=== PATIENT | male | born 1940 | race African-American/Black ===

== ENCOUNTER 2018-05-21 19:49 | Emergency (ER) | payer OTHER, MEDICAID ==
[~2018-05-21] VITALS: Ht 165.1 cm; Wt 53.1 kg
[~2018-05-21 19:49] MED LIST: AMLO5TAB66 PO; CARV3.1231 PO; DOCU250C16 PO; FAMO20TA32 PO; ISOS30TA11 PO; LACT10SO32 PO; METH2.5T47 PO; PRED20 PO; [UNRECOGNIZED DRUG - CODE] PO
[2018-05-21] MEDS ORDERED: POLY238P2 PO (21:02)
[2018-05-21] MEDS ORDERED: TAMS0.4C32 PO (21:02)
[2018-05-21] MEDS ORDERED: ACET160E39 PO (21:04)
[2018-05-21 21:27] LABS: ANION GAP 9 mmol/L (8-16); CALCIUM, TOTAL 9.4 mg/dL (8.8-10.5); CARBON DIOXIDE 27 mmol/L (22-29); CHLORIDE 102 mmol/L (98-107); CREATININE 0.95 mg/dL (0.60-1.30); GLOMERULAR FILTR. RATE CALC > 60 mL/min (>60); GLUCOSE,RANDOM 121 mg/dL (70-110); POTASSIUM 4.7 mmol/L (3.5-5.1); SODIUM SERUM 138 mmol/L (136-145); UREA NITROGEN, BLOOD 12 mg/dL (7-18)
[2018-05-21 21:28] LABS: HEMATOCRIT 33.2 % (41-53); MEAN CORPUSCULAR HEMOGLOBIN 27.7 pg (26.0-34.0); MEAN CORPUSCULAR VOLUME 84 fL (80-100); PLATELET COUNT (AUTO) 250 K/uL (150-450); RED BLOOD CELL COUNT(AUTO) 3.96 MIL/uL (4.50-5.90); RED CELL DISTRIBUTION WIDTH 15.7 % (11.5-14.5)
[2018-05-21 21:35] LABS: PROTHROMBIN TIME 10.8 SEC (9.4-11.6)
[2018-05-21] MEDS ORDERED: POVIDONE-IODINE 10% 15 ML SOLUTION UD ONE (21:40)
[2018-05-21 21:52] LABS: ALANINE AMINOTRANSFERASE 15 U/L (12-78); ALBUMIN 3.2 g/dL (3.4-5.0); ALKALINE PHOSPHATASE 88 U/L (46-116); ASPARTATE AMINOTRANSFERASE 20 U/L (15-37); BILIRUBIN,TOTAL 0.5 mg/dL (0.1-1.0); CREATINE KINASE, TOTAL ONLY 371 U/L (39-308); TOTAL PROTEIN, SERUM 7.3 g/dL (6.4-8.2)
[2018-05-21 21:54] LABS: B-TYPE NATRIURETIC PEPTIDE 27 pg/mL (0-100)
[2018-05-21] MEDS ORDERED: SODIUM CHLORIDE 0.9% 1,000 ML IV ONE (22:00)
[2018-05-21 22:04] LABS: APPEARANCE,URINE CLEAR (CLEAR); BILIRUBIN,URINE PRELIM. POSITIVE (NEGATIVE); GLUCOSE, URINE (UA) NEGATIVE (NEGATIVE); KETONES,URINE 15 mg/dL (NEGATIVE); LEUKOCYTE ESTERASE ,URINE TRACE (NEGATIVE); NITRATE,URINE NEGATIVE (NEGATIVE); OCCULT BLOOD,URINE NEGATIVE (NEGATIVE); PROTEIN,URINE TRACE (NEGATIVE); UROBILINOGEN,URINE 0.2 mg/dL (<=1.0)
[2018-05-21 22:22] LABS: BAND NEUTROPHILS % (MANUAL) 14 % (0-5); LYMPHOCYTES % (MANUAL) 5 % (22-44); MONOCYTES % (MANUAL) 3 % (2-9); SEGMENTED NEUTROPHILS % 78 % (40-70)
[2018-05-21 22:27] LABS: BACTERIA,URINE None Seen /HPF (None Seen); RBC,URINE None Seen /HPF (0-2); SQUAMOUS EPITHELIAL CELL,UR Few /LPF (None Seen); WBC,URINE 0-2 /HPF (0-5)
[2018-05-21 22:28] LABS: MUCUS,URINE Few LPF (None Seen)
[2018-05-21] MEDS ORDERED: CefTRIAXone 1 GM/DEXTROSE 50 ML IV ONE (22:30)
[2018-05-22 00:30] VITALS: BP 141/86
== END 2018-05-22 00:53 | disposition home or self-care (01) ==
LOC: EMS 19:50
DX: E86.0 Dehydration (principal); N39.0 Urinary tract infection, site not specified; K21.9 Gastro-esophageal reflux disease without esophagitis; I10 Essential (primary) hypertension; I25.2 Old myocardial infarction; F32.9 Major depressive disorder, single episode, unspecified; F17.210 Nicotine dependence, cigarettes, uncomplicated
CPT/HCPCS: 36415; 71045; 80053; 81001; 82550; 83880; 84484; 85025; 85610; 85730; 93005; 96361; 96365; 99285; J7030